=== PATIENT | female | born 1940 | race Caucasian/White ===

== ENCOUNTER 2016-06-05 08:06 | Day surgery (SDC) | payer MEDICARE, OTHER ==
[~2016-06-05 08:06] MED LIST: Lasix 20 MG/2 ML IV ONE; Sodium Chloride 0.9% 1000 ML 1,000 ML IV SCH
[2016-06-05] MEDS ORDERED: Lasix 20 MG/2 ML ONE (11:17)
[2016-06-05 15:15] VITALS: BP 118/65; PULSE 67; O2SAT 94
== END 2016-06-05 15:00 | disposition home or self-care (01) ==
LOC: SDC 08:06
PROVIDERS: ATTEND Family Medicine
DX: D64.9 Anemia, unspecified (principal)
CPT/HCPCS: 96374; 96365; 96366; 36415; 86850; 86900; 86901; 86922; P9016; 36430; J1940

== ENCOUNTER 2017-03-04 19:16 | Inpatient (IN) | payer MEDICARE, OTHER ==
[2017-03-04] MEDS ORDERED: ROCEPHIN 1 Gm-D5w 50 ml Bag** 1 G/50 ML IVPB IV STA (19:30)
[2017-03-04] MEDS ORDERED: Zithromax 500 MG/ 250 ML NaCl Premix 500 MG/250 ML IVPB IV STA (19:30)
[2017-03-04] MEDS ORDERED: Xopenex 1.25 MG/0.5 ML UD NEBULE IH ONE ×2 (19:32→20:29)
[2017-03-04] MEDS ORDERED: TORAdol 30 mg Injection IV ONE (19:33)
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
[2017-03-04] MEDS ORDERED: TORAdol 30 mg Injection ONE (19:45)
[2017-03-04] MEDS ORDERED: ROCEPHIN 1 Gm-D5w 50 ml Bag** 1 G/50 ML IVPB IV ONE (19:45)
[2017-03-04] MEDS ORDERED: Zithromax 500 MG/ 250 ML NaCl Premix 500 MG/250 ML IVPB IV ONE (19:45)
[2017-03-04] MEDS: Sodium Chloride 0.9% 1000 ML 1,000 ML IV SCH (19:46)
[2017-03-04 20:05] LABS: Granulocyte Absolute (ANC) 11.24 (1.4-6.9); Hemoglobin 13.9 gm/dl (12.0-16.0); Mean Cell Volume 98.7 fl (78-100); Mean Corpuscular Hemoglobin 31.2 pg (26-32); Mean Corpuscular Hgb Concent. 31.6 g/dl (32-36); Mean Platelet Volume 10.5 fl (6-9.5); Platelet Count 224 K/mm3 (150-450); Red Blood Count 4.46 M/mm3 (4.1-5.4); Red Cell Distribution Width 12.3 % (11.5-14.0); White Blood Count 12.9 K/mm3 (4.0-10.5)
[2017-03-04] MEDS ORDERED: Sodium Chloride 3 ML UD NEBULES IH ONE (20:29)
[2017-03-04 20:34] LABS: AMYLASE 52 U/L (25-115); LIPASE 71 U/L (73-393)
[2017-03-04 20:39] LABS: ALBUMIN 3.2 g/dL (3.4-5.0); ALKALINE PHOSPHATASE 86 U/L (46-116); ANION GAP 12.9 MEQ/L (5-15); BLOOD UREA NITROGEN 15 mg/dL (9-20); CHLORIDE 101 mEq/L (98-107); Calcium 9.6 mg/dL (8.5-10.1); Carbon Dioxide 27.1 mEq/L (21-32); Creatinine 1 0.82 mg/dl (0.55-1.30); EST GLOMERULAR FILTRATION RATE > 60 ML/MIN; Glucose 133 MG/DL (70-110); Potassium 3.9 mEq/L (3.5-5.1); SGOT/AST 19 U/L (15-37); SGPT/ALT 18 U/L (12-78); SODIUM 137 mEq/L (136-145); Total Protein 7.9 gm/dL (6.4-8.2)
[2017-03-04 21:01] LABS: ATYPICAL LYMPHS 2 %; Lymphocytes 2 % (24-44); Monocyte 9 % (0.0-12.0); Neutrophils 87 % (36.0-66.0); Total Cells Counted 100
[2017-03-04 21:02] LABS: Platelet Estimate NORMAL (NORMAL)
[2017-03-04 21:12] LABS: INFLUENZA A NEGATIVE (NEGATIVE); INFLUENZA B NEGATIVE (NEGATIVE); RESPIRATORY SYNCTIAL VIRUS NEGATIVE (Negative)
[2017-03-04] MEDS ORDERED: SUBLIMAZE 100 MCG/2 ML IV ONE (21:24)
[2017-03-04] MEDS ORDERED: Phenergan 25 MG INJ IV PRN (21:26)
[2017-03-04] MEDS ORDERED: Robitussin AC Syrup Unit Dose Cup PO PRN (21:26)
[2017-03-04] MEDS ORDERED: MORPHINE SULFATE 2 MG INJ IV PRN (21:26)
[2017-03-04] MEDS ORDERED: SUBLIMAZE 100 MCG/2 ML ONE (21:30)
[2017-03-04] MEDS: PROVENTIL 2.5 MG/3 ML NEB IH SCH (23:29)
[2017-03-04] MEDS: TYLENOL 325 MG PO PRN (23:30)
[2017-03-04] MEDS ORDERED: Catapres 0.1 MG PO ONE (23:30)
[2017-03-05] MEDS: PROVENTIL 2.5 MG/3 ML NEB IH SCH ×6 (03:35→23:06)
[2017-03-05] MEDS: Sodium Chloride 0.9% 1000 ML 1,000 ML IV SCH ×2 (04:52→14:40)
[2017-03-05 06:05] LABS: BASOPHIL % 0.1 % (0.0-0.4); Basophil (Absolute #) 0.01 (0-0.4); Eosinophil % 0.3 % (0.00-5.0); Eosinophil (Absolute #) 0.03 (0-0.5); Granulocyte Absolute (ANC) 8.84 (1.4-6.9); Granulocytes % 81.5 % (36.0-66.0); Hematocrit 41.1 % (35-47); Lymphocyte (Absolute #) 0.92 (1.0-4.6); Lymphocytes % 8.5 % (24.0-44.0); Mean Cell Volume 99.5 fl (78-100); Mean Corpuscular Hemoglobin 31.5 pg (26-32); Mean Corpuscular Hgb Concent. 31.6 g/dl (32-36); Mean Platelet Volume 10.5 fl (6-9.5); Monocyte (Absolute #) 1.04 (0.0-1.3); Monocytes % 9.6 % (0.0-12.0); Platelet Count 206 K/mm3 (150-450); Red Blood Count 4.13 M/mm3 (4.1-5.4); Red Cell Distribution Width 12.3 % (11.5-14.0); White Blood Count 10.8 K/mm3 (4.0-10.5)
[2017-03-05] MEDS ORDERED: TORAdol 30 mg Injection ONE (06:26)
[2017-03-05] MEDS: TORAdol 30 mg Injection IV PRN ×2 (06:28→14:35)
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
[2017-03-05 06:43] LABS: ALBUMIN 2.8 g/dL (3.4-5.0); ALKALINE PHOSPHATASE 83 U/L (46-116); ANION GAP 12.4 MEQ/L (5-15); BLOOD UREA NITROGEN 13 mg/dL (9-20); CHLORIDE 105 mEq/L (98-107); Calcium 9.1 mg/dL (8.5-10.1); Creatinine 1 0.88 mg/dl (0.55-1.30); EST GLOMERULAR FILTRATION RATE > 60 ML/MIN; Glucose 131 MG/DL (70-110); Potassium 3.6 mEq/L (3.5-5.1); SGOT/AST 17 U/L (15-37); SGPT/ALT 17 U/L (12-78); SODIUM 140 mEq/L (136-145); Total Protein 7.5 gm/dL (6.4-8.2)
[2017-03-05 07:46] LABS: Appearance CLEAR (CLEAR); Bilirubin NEGATIVE (NEGATIVE); Blood 50 Ery/ul (0-5); Glucose NEGATIVE (NEGATIVE); Ketones NEGATIVE (NEGATIVE); Leukocyte Esterase TRACE (NEGATIVE); Nitrite NEGATIVE (NEGATIVE); Protein,Urine Dip TRACE (Negative); Specific Gravity 1.015 (1.005-1.025); Urobilinogen NORMAL mg/dL (0-1)
[2017-03-05 07:47] LABS: Bacteria FEW /HPF (NEGATIVE); Epithelial Cells FEW /HPF (FEW); Mucus SLIGHT /HPF (NEGATIVE)
--- NOTE | 2017-03-05 08:34 | XRAY ---
Indication: Chest pain, short of breath, and cough. Comparison: June 25, 2014. AP/lateral chest less inflated today with new bibasilar infiltrates/atelectasis and tiny effusions. Heart is not enlarged for AP portable technique. Bony thorax intact again with osteopenia, degenerative changes, and mid thoracic kyphoplasty.
[2017-03-05] MEDS: Catapres 0.1 MG PO SCH ×2 (09:38→21:03)
[2017-03-05] MEDS: Zestril 20 MG PO SCH (09:38)
[2017-03-05] MEDS: NORVASC 5 MG PO SCH (09:38)
[2017-03-05] MEDS: ROCEPHIN 1 Gm-D5w 50 ml Bag** 1 G/50 ML IVPB IV SCH (21:02)
[2017-03-05] MEDS: Zithromax 500 MG/ 250 ML NaCl Premix 500 MG/250 ML IVPB IV SCH (21:02)
[2017-03-06] MEDS: Sodium Chloride 0.9% 1000 ML 1,000 ML IV SCH ×4 (02:09→23:04)
[2017-03-06] MEDS: TORAdol 30 mg Injection IV PRN (02:11)
[2017-03-06] MEDS: PROVENTIL 2.5 MG/3 ML NEB IH SCH ×6 (03:18→23:49)
[2017-03-06 06:28] LABS: BASOPHIL % 0.2 % (0.0-0.4); Basophil (Absolute #) 0.01 (0-0.4); Eosinophil (Absolute #) 0.13 (0-0.5); Granulocyte Absolute (ANC) 4.66 (1.4-6.9); Granulocytes % 71.4 % (36.0-66.0); Hematocrit 37.3 % (35-47); Hemoglobin 11.5 gm/dl (12.0-16.0); Lymphocyte (Absolute #) 0.82 (1.0-4.6); Lymphocytes % 12.6 % (24.0-44.0); Mean Cell Volume 100.8 fl (78-100); Mean Corpuscular Hgb Concent. 30.8 g/dl (32-36); Mean Platelet Volume 10.2 fl (6-9.5); Monocytes % 13.8 % (0.0-12.0); Platelet Count 185 K/mm3 (150-450); Red Cell Distribution Width 12.3 % (11.5-14.0); White Blood Count 6.5 K/mm3 (4.0-10.5)
[2017-03-06 06:32] LABS: ANION GAP 8.2 MEQ/L (5-15); BLOOD UREA NITROGEN 8 mg/dL (9-20); CHLORIDE 109 mEq/L (98-107); Calcium 8.2 mg/dL (8.5-10.1); Carbon Dioxide 27.1 mEq/L (21-32); Creatinine 1 0.62 mg/dl (0.55-1.30); EST GLOMERULAR FILTRATION RATE > 60 ML/MIN; Glucose 110 MG/DL (70-110); Potassium 3.2 mEq/L (3.5-5.1); SODIUM 141 mEq/L (136-145)
--- NOTE | 2017-03-06 09:01 | PCM.NOTE ---
Date and Time: 03/06/17858 Subjective Assessment: Pt was up walking, pain is now 3/10 in R chest. Some cough. Shine po. - Review of Systems Constitutional: No Fever Respiratory: Cough Objective Exam General Appearance: no apparent distress, alert Neurologic Exam: oriented x 3, cooperative Skin Exam: normal color, warm, dry Eye Exam: eyes nml inspection Ears, Nose, Throat Exam: moist mucous membranes Respiratory Exam: normal breath sounds, lungs clear, No crackles/rales, No rhonchi, No wheezing Cardiovascular Exam: regular rate/rhythm, normal heart sounds, No murmur Extremity Exam: No pedal edema, No swelling Back Exam: normal inspection, No rash OBJECTIVE DATA Vital Signs: Vital Signs - 24 hr Temp Pulse Resp BP Pulse Ox 03/06/17 07:43 18 03/06/17 07:11 98.3 F 88 18 154/70 97 03/06/17 06:43 86 18 95 03/06/17 04:00 99.0 F 91 H 19 143/68 93 L 03/06/17 03:00 88 18 92 L 03/06/17 00:00 98.4 F 95 H 19 136/61 92 L 03/05/17 23:00 81 22 92 L 03/05/17 20:00 98.3 F 90 18 130/60 94 L 03/05/17 19:03 87 18 94 L 03/05/17 16:00 98.7 F 93 H 18 122/58 94 L 03/05/17 14:50 86 18 93 L 03/05/17 11:17 98.2 F 86 18 123/60 94 L 03/05/17 10:42 75 20 93 L Oxygen-Last 24 hours O2 Percentage 2 Liters = 28% O2 Percentage 2 Liters = 28% O2 Percentage 2 Liters = 28% O2 Percentage 2 Liters = 28% O2 Percentage 2 Liters = 28% O2 Percentage 2 Liters = 28% Pain Assessment - Last Documented Pain Intensity 6 Pain Scale Used 0-10 Pain Scale Intake and Output: Intake & Output 03/03/17 03/04/17 03/05/17 03/06/17 11:59 11:59 11:59 11:59 Intake Total 240 4263 Output Total 400 1700 Balance -160 2563 Weight 76.204 kg Lab Results: Lab Results-Last 24 Hours 0103/05/17 03/06/17 Range/Units 20:37 23:22 02:25 WBC (4.0-10.5) K/mm3 RBC (4.1-5.4) M/mm3 Hgb (12.0-16.0) gm/dl Hct (35-47) % MCV (78-100) fl MCH (26-32) pg MCHC (32-36) g/dl RDW (11.5-14.0) % Plt Count (150-450) K/mm3 MPV (6-9.5) fl Gran % (36.0-66.0) % Lymphocytes % (24.0-44.0) % Monocytes % (0.0-12.0) % Eosinophils % (0.00-5.0) % Basophils % (0.0-0.4) % Basophils # (0-0.4) Sodium (136-145) mEq/L Potassium (3.5-5.1) mEq/L Chloride (98-107) mEq/L Carbon Dioxide (21-32) mEq/L Anion Gap (5-15) MEQ/L BUN (9-20) mg/dL Creatinine (0.55-1.30) mg/dl Estimated GFR ML/MIN Glucose (70-110) MG/DL Calcium (8.5-10.1) mg/dL Troponin I < 0.017 < 0.017 < 0.017 (0.000-0.056) ng/ml 03/06/17 03/06/17 03/06/17 Range/Units 05:00 05:00 05:00 WBC 6.5 (4.0-10.5) K/mm3 RBC 3.70 L (4.1-5.4) M/mm3 Hgb 11.5 L (12.0-16.0) gm/dl Hct 37.3 (35-47) % MCV 100.8 H (78-100) fl MCH 31.0 (26-32) pg MCHC 30.8 L (32-36) g/dl RDW 12.3 (11.5-14.0) % Plt Count 185 (150-450) K/mm3 MPV 10.2 H (6-9.5) fl Gran % 71.4 H (36.0-66.0) % Lymphocytes % 12.6 L (24.0-44.0) % Monocytes % 13.8 H (0.0-12.0) % Eosinophils % 2.0 (0.00-5.0) % Basophils % 0.2 (0.0-0.4) % Basophils # 0.01 (0-0.4) Sodium 141 (136-145) mEq/L Potassium 3.2 L (3.5-5.1) mEq/L Chloride 109 H (98-107) mEq/L Carbon Dioxide 27.1 (21-32) mEq/L Anion Gap 8.2 (5-15) MEQ/L BUN 8 L (9-20) mg/dL Creatinine 0.62 (0.55-1.30) mg/dl Estimated GFR > 60 ML/MIN Glucose 110 (70-110) MG/DL Calcium 8.2 L (8.5-10.1) mg/dL Troponin I < 0.017 (0.000-0.056) ng/ml Multi-Disciplinary Progress Notes: Multi-Disciplinary Progress Notes 03/05/17 11:44 Case Management Note by Rossi Hartley PT WAS MADE INPT . IMPORTANT MESSAGE FROM MEDICARE GIVEN TO PT SIGNED AND COPY TO CHART. Initialized on 03/05/17 11:44 - END OF NOTE 03/05/17 09:51 Case Management Note by Rossi Hartley MEDICARE GATES PAPERS GIVEN TO PT SIGNED COPY TO CHART. Initialized on 03/05/17 09:51 - END OF NOTE Assessment/Plan (1) Pneumonia Current Visit: Yes Status: Acute Assessment & Plan: Improving, still having pain, still on O2. Will need at least another day, perhaps 2, on IV antibiotics before d/c home. Code(s): J18.9 - PNEUMONIA, UNSPECIFIED ORGANISM (2) Abdominal pain Current Visit: Yes Status: Acute Qualifiers: Abdominal location: epigastric Qualified Code(s): R10.13 - Epigastric pain Assessment & Plan: the RUQ pain much better, I think due to PNA. Code(s): R10.9 - UNSPECIFIED ABDOMINAL PAIN (3) Back pain Current Visit: Yes Status: Acute Qualifiers: Back pain location: thoracic back pain Chronicity: acute Back pain laterality: right Qualified Code(s): M54.6 - Pain in thoracic spine Assessment & Plan: improved Code(s): M54.9 - DORSALGIA, UNSPECIFIED
[2017-03-06] MEDS: NORVASC 5 MG PO SCH (09:29)
[2017-03-06] MEDS: Catapres 0.1 MG PO SCH ×2 (09:29→21:17)
[2017-03-06] MEDS: Zestril 20 MG PO SCH (09:30)
[2017-03-06] MEDS: ROCEPHIN 1 Gm-D5w 50 ml Bag** 1 G/50 ML IVPB IV SCH (19:54)
[2017-03-06] MEDS: Zithromax 500 MG/ 250 ML NaCl Premix 500 MG/250 ML IVPB IV SCH (21:15)
[2017-03-06] MEDS: TYLENOL 325 MG PO PRN (21:21)
[2017-03-07] MEDS: PROVENTIL 2.5 MG/3 ML NEB IH SCH ×6 (03:02→22:50)
[2017-03-07] MEDS: Sodium Chloride 0.9% 1000 ML 1,000 ML IV SCH ×4 (07:47→16:51)
--- NOTE | 2017-03-07 08:13 | PCM.NOTE ---
Date and Time: 03/07/17 08 Subjective Assessment: She is feeling better. Pain in R lower chest is perhapes 03/12. O2 sats have been 90-92% on RA. Did not wear any O2 last night. Objective Exam General Appearance: no apparent distress, alert Neurologic Exam: oriented x 3, cooperative Skin Exam: normal color, warm, dry, No rash Respiratory Exam: normal breath sounds, crackles/rales (slight RLL), No rhonchi , No wheezing Cardiovascular Exam: regular rate/rhythm, normal heart sounds, No murmur Extremity Exam: normal inspection Back Exam: normal inspection, No rash OBJECTIVE DATA Vital Signs: Vital Signs - 24 hr Temp Pulse Resp BP Pulse Ox 03/07/17 07:34 96.1 F 80 18 149/77 94 L 03/07/17 07:10 83 16 92 L 03/07/17 04:00 98.0 F 88 18 138/80 90 L 03/07/17 03:03 81 18 91 L 03/07/17 00:00 98.0 F 91 H 19 117/61 92 L 03/06/17 23:50 84 18 91 L 03/06/17 20:42 98 H 18 93 L 03/06/17 20:00 98.9 F 105 H 18 155/74 93 L 03/06/17 15:58 97.6 F 86 18 132/60 94 L 03/06/17 15:40 18 03/06/17 14:33 82 18 95 03/06/17 11:45 18 03/06/17 11:02 97.7 F 87 18 135/62 93 L 03/06/17 10:23 83 20 98 Oxygen-Last 24 hours O2 Percentage 2 Liters = 28% Pain Assessment - Last Documented Pain Intensity 0 Pain Scale Used 0-10 Pain Scale,FLACC Intake and Output: Intake & Output 03/04/17 03/05/17 03/06/17 03/07/17 11:59 11:59 11:59 11:59 Intake Total 240 4263 3811 Output Total 400 1700 3900 Balance -160 2563 -89 Weight 76.204 kg Lab Results: Lab Results-Last 24 Hours 03/06/17 Range/Units 08:34 Troponin I < 0.017 (0.000-0.056) ng/ml Multi-Disciplinary Progress Notes: Multi-Disciplinary Progress Notes 03/06/17 12:02 Case Management Note by Rossi Hartley PT CONT TO VOICE NO NEW NEEDS AT DISCHARGE, WILL CONT TO FOLLOW ANY NEEDS. Initialized on 03/06/17 12:02 - END OF NOTE Assessment/Plan (1) Pneumonia Current Visit: Yes Status: Acute Assessment & Plan: Improved; would like to see if she oxygenates well while walking. She may benefit from another day on IV fluids and antibiotics. Code(s): J18.9 - PNEUMONIA, UNSPECIFIED ORGANISM (2) Abdominal pain Current Visit: Yes Status: Acute Qualifiers: Abdominal location: epigastric Qualified Code(s): R10.13 - Epigastric pain Assessment & Plan: Nearly resolved. Related to pneumonia. Code(s): R10.9 - UNSPECIFIED ABDOMINAL PAIN (3) Back pain Current Visit: Yes Status: Resolved Qualifiers: Back pain location: thoracic back pain Chronicity: acute Back pain laterality: right Qualified Code(s): M54.6 - Pain in thoracic spine Code(s): M54.9 - DORSALGIA, UNSPECIFIED (4) Anemia Current Visit: Yes Status: Acute Qualifiers: Anemia type: unspecified type Qualified Code(s): D64.9 - Anemia, unspecified Assessment & Plan: has hx myelodysplastic d/o, was treated by oncology. will recheck today. Code(s): D64.9 - ANEMIA, UNSPECIFIED
[2017-03-07] MEDS: NORVASC 5 MG PO SCH (10:19)
[2017-03-07] MEDS: Catapres 0.1 MG PO SCH ×2 (10:19→21:02)
[2017-03-07] MEDS: Zestril 20 MG PO SCH (10:19)
[2017-03-07 10:34] LABS: ANION GAP 13.5 MEQ/L (5-15); BLOOD UREA NITROGEN 7 mg/dL (9-20); CHLORIDE 106 mEq/L (98-107); Calcium 8.4 mg/dL (8.5-10.1); Carbon Dioxide 25.6 mEq/L (21-32); Creatinine 1 0.76 mg/dl (0.55-1.30); EST GLOMERULAR FILTRATION RATE > 60 ML/MIN; Glucose 162 MG/DL (70-110); MAGNESIUM 1.9 mg/dL (1.8-2.4); Potassium 3.2 mEq/L (3.5-5.1); SODIUM 142 mEq/L (136-145)
[2017-03-07] MEDS: ROCEPHIN 1 Gm-D5w 50 ml Bag** 1 G/50 ML IVPB IV SCH (21:01)
[2017-03-07] MEDS: Zithromax 500 MG/ 250 ML NaCl Premix 500 MG/250 ML IVPB IV SCH (21:57)
[2017-03-08] MEDS: PROVENTIL 2.5 MG/3 ML NEB IH SCH ×6 (03:22→23:09)
[2017-03-08] MEDS: Sodium Chloride 0.9% 1000 ML 1,000 ML IV SCH (05:03)
[2017-03-08] MEDS: Catapres 0.1 MG PO SCH ×2 (09:41→21:47)
[2017-03-08] MEDS: NORVASC 5 MG PO SCH (09:41)
[2017-03-08] MEDS: Zestril 20 MG PO SCH (09:41)
[2017-03-08] MEDS ORDERED: Klor Con 10 MEQ PO ONE (11:17)
--- NOTE | 2017-03-08 11:41 | PCM.NOTE ---
Date and Time: 03/08/17 1136 Subjective Assessment: Patient reports she was very short of breath and her oxygen saturation dropped when she walked yesterday. She reports they thought about sending her home this weekend but then this happened. She reports her appetite has been good. - Review of Systems Constitutional: Weakness Eyes: No Symptoms Ears, Nose, & Throat: No Symptoms Respiratory: Cough, Short Of Breath Cardiac: No Symptoms Abdominal/Gastrointestinal: No Symptoms Genitourinary Symptoms: No Symptoms Musculoskeletal: No Symptoms Skin: No Symptoms Objective Exam General Appearance: no apparent distress, alert, other (son at bedside) Neurologic Exam: alert, cooperative, normal mood/affect Skin Exam: normal color, warm, dry, No rash Respiratory Exam: other (fine crackles in right lung franco, equal breath sounds , no wheezing) Cardiovascular Exam: regular rate/rhythm, normal heart sounds, No murmur, No friction rub, No gallop Gastrointestinal/Abdomen Exam: soft, normal bowel sounds, No tenderness, No distention, No mass Extremity Exam: normal inspection, other (no c/c/e, SCD in place) OBJECTIVE DATA Vital Signs: Vital Signs - 24 hr Temp Pulse Resp BP Pulse Ox 03/08/17 07:40 98.4 F 88 20 146/76 96 03/08/17 07:00 87 18 95 03/08/17 04:11 97.8 F 84 18 164/77 96 03/08/17 03:23 84 18 96 03/07/17 23:44 98.3 F 93 H 24 152/73 94 L 03/07/17 22:50 86 18 92 L 03/07/17 20:15 98.3 F 86 20 160/74 96 03/07/17 19:41 83 16 95 03/07/17 18:00 16 03/07/17 16:00 97.9 F 92 H 18 141/67 96 03/07/17 15:44 90 20 94 L 03/07/17 14:00 20 03/07/17 11:47 97.6 F 81 18 125/60 92 L Oxygen-Last 24 hours O2 Percentage 2 Liters = 28% O2 Percentage 2 Liters = 28% O2 Percentage 2 Liters = 28% O2 Percentage 2 Liters = 28% Pain Assessment - Last Documented Pain Intensity 0 Pain Scale Used 0-10 Pain Scale Intake and Output: Intake & Output 0103/07/17 03/08/17 03/09/17 06:59 06:59 06:59 06:59 Intake Total 4383 3931 4443 380 Output Total 1400 3500 4000 1700 Balance 2983 431 443 -1320 Weight 76.204 kg 72.938 kg Multi-Disciplinary Progress Notes: Multi-Disciplinary Progress Notes 03/07/17 12:49 Respiratory Note by Majo Kendall PT WALKED DOWN THE LAMAR WHILE ON ROOM AIR. O2 SAT DROPPED DOWN TO 87%. PT WAS THEN PLACED ON 2LPM NASAL CANNULA. O2 SAT INCREASED TO 97%. NURSE AWARE. Initialized on 03/07/17 12:49 - END OF NOTE Assessment/Plan (1) Pneumonia Current Visit: Yes Status: Acute Assessment & Plan: Continue antibiotics. Try to wean off oxygen. Consider home oxygen evaluation tomorrow before possible discharge. Decrease IV fluids as she is taking fluids by mouth well. Code(s): J18.9 - PNEUMONIA, UNSPECIFIED ORGANISM (2) Hypokalemia Current Visit: Yes Status: Acute Assessment & Plan: Her potassium was 3.2 yesterday. I called the pharmacist and he stated he did not see where she received any potassium yesterday. I will give her KCl 40 MEq po once. Code(s): E87.6 - HYPOKALEMIA (3) Myelodysplastic syndrome Current Visit: Yes Status: Acute Assessment & Plan: stable. Recheck CBC in AM. Code(s): D46.9 - MYELODYSPLASTIC SYNDROME, UNSPECIFIED
[2017-03-08] MEDS: ROCEPHIN 1 Gm-D5w 50 ml Bag** 1 G/50 ML IVPB IV SCH (21:47)
[2017-03-08] MEDS: Zithromax 500 MG/ 250 ML NaCl Premix 500 MG/250 ML IVPB IV SCH (22:39)
[2017-03-09] MEDS: PROVENTIL 2.5 MG/3 ML NEB IH SCH ×3 (03:34→13:06)
[2017-03-09 05:58] LABS: Granulocyte Absolute (ANC) 3.47 (1.4-6.9); Hematocrit 38.7 % (35-47); Hemoglobin 12.3 gm/dl (12.0-16.0); Mean Cell Volume 98.2 fl (78-100); Mean Corpuscular Hemoglobin 31.2 pg (26-32); Mean Corpuscular Hgb Concent. 31.8 g/dl (32-36); Mean Platelet Volume 11.4 fl (6-9.5); Platelet Count 198 K/mm3 (150-450); Red Blood Count 3.94 M/mm3 (4.1-5.4); Red Cell Distribution Width 12.4 % (11.5-14.0); White Blood Count 5.6 K/mm3 (4.0-10.5)
[2017-03-09 06:12] LABS: BLOOD UREA NITROGEN 6 mg/dL (9-20); CHLORIDE 107 mEq/L (98-107); Carbon Dioxide 27.2 mEq/L (21-32); EST GLOMERULAR FILTRATION RATE > 60 ML/MIN; Glucose 103 MG/DL (70-110); Potassium 3.6 mEq/L (3.5-5.1); SODIUM 142 mEq/L (136-145)
[2017-03-09 07:28] LABS: Eosinophil 2 % (0.00-3.0); Lymphocytes 17 % (24-44); Monocyte 5 % (0.0-12.0); Neutrophils 76 % (36.0-66.0); Total Cells Counted 100
[2017-03-09 07:29] LABS: Platelet Estimate NORMAL (NORMAL)
[2017-03-09] MEDS: NORVASC 5 MG PO SCH (09:47)
[2017-03-09] MEDS: Catapres 0.1 MG PO SCH (09:47)
[2017-03-09] MEDS: Zestril 20 MG PO SCH (09:47)
[2017-03-09 11:19] VITALS: BP 129/75; PULSE 78; O2SAT 95
--- NOTE | 2017-03-09 12:11 | PCM.DCORD ---
- Discharge Discharge Date: 03/09/17 Disposition: Home, Self-Care Condition: Good Prescriptions: New Albuterol Sulfate [Albuterol Sulfate Hfa] 2 puffs IH Q4HPRN PRN #1 [id number] PRN Reason: Shortness Of Breath/Wheezing Cefdinir 300 mg [Omnicef 300 mg] 300 mg PO BID #12 capsule Azithromycin 250 mg [Zithromax 250 MG TABLET] 250 mg PO DAILY #1 tablet Continue Clonidine HCl 0.1 mg [Catapres 0.1 MG] 0.1 mg PO BID Lisinopril 20 mg [Zestril 20 MG] 20 mg PO DAILY #30 tablet Amlodipine Besylate 5 mg [Norvasc 5 mg] 5 mg PO DAILY Follow up with: DANITZA PLUMMER [Primary Care Provider] - 03/14/17 9:00 am
--- NOTE | 2017-03-12 10:15 | DS ---
DISCHARGE DIAGNOSES: 1) PNEUMONIA, BILATERAL LOWER LOBES. 2) HYPOKALEMIA. 3) MYELODYSPLASTIC SYNDROME. DISCHARGE PHYSICAL EXAMINATION: VITALS: Temperature current 97.8F, temperature max 98.6F, heart rate 72 to 89, respiratory rate 18 to 20, blood pressure 129 to 190 over 75 to 95 currently 129/75. Oxygen saturation 92 to 95% on room air. GENERAL: The patient was ambulating in her room and in no acute distress. CVS: She has a regular rate and rhythm. No murmurs, gallops or rubs are appreciated. CHEST: Clear to auscultation bilaterally. No crackles or wheezes. ABDOMEN: Soft, nontender, nondistended with normal bowel sounds. EXTREMITIES: No clubbing, cyanosis or edema. On her fingers she does have cyanosis due to Raynaud's phenomenon. SKIN: Warm, dry and intact. HOSPITAL COURSE: 1) PNEUMONIA BILATERAL LOWER LOBE: She was given azithromycin four doses here in the hospital and will give her one more dose of azithromycin 250 mg p.o. to take at home. She was on ceftriaxone 1 gm IV daily x4 days here in the hospital. I plan to complete a ten day course with Cefdinir 300 mg p.o. b.i.d. We tried to qualify the patient for home oxygen yesterday before discharge but she did not qualify. She will be sent home with an Albuterol inhaler 2 puffs every four hours as needed and she will closely follow up with her primary care physician, Dr. Hurt. 2) HYPOKALEMIA: She was given 40 mEq of potassium chloride on 03/08/2017 for potassium of 3.2. Her potassium was normal today at 2.6. 3) HISTORY OF MYELODYSPLASTIC SYNDROME: Her white blood cell count was normal at 5.6, hemoglobin 12.3, PLT count 198,000. DISCHARGE MEDICATIONS: She is resuming all of her home medications with the addition of azithromycin, Cefdinir and Albuterol inhaler. FOLLOW UP: Follow up with Dr. Hurt. DISPOSITION: The patient was discharged to home in good condition.
== END 2017-03-09 14:25 | disposition home or self-care (01) | DRG 195 ==
LOC: ED 19:16 → MED SURG 22:14 → OBSVTOIN 03-05 06:36
PROVIDERS: ADMIT Family Medicine; ATTEND Family Medicine
DX: J18.9 Pneumonia, unspecified organism (principal); J02.9 Acute pharyngitis, unspecified; J18.1 Lobar pneumonia, unspecified organism; E87.6 Hypokalemia; D46.9 Myelodysplastic syndrome, unspecified; I10 Essential (primary) hypertension; R10.13 Epigastric pain; M54.6 Pain in thoracic spine; D64.9 Anemia, unspecified; Z79.899 Other long term (current) drug therapy
CPT/HCPCS: 36000; 36415; 71046; 80048; 80053; 81000; 82150; 83036; 83690; 83735; 84484; 85025; 87040; 87070; 87086; 87430; 87631; 93005; 94640; 94760; 96360; 96361; 96365; 96367; 96375; 99285; G0378; J0456; J0696; J1885; J3010; A9270-GY

== ENCOUNTER 2018-02-20 10:18 | Inpatient (IN) | payer MEDICARE, OTHER ==
[2018-02-20] MEDS ORDERED: Sodium Chloride 0.9% 500 ML 500 ML IV SCH (11:30)
[2018-02-20] MEDS ORDERED: PROVENTIL 2.5 MG/3 ML NEB IH PRN (11:30)
[2018-02-20 11:48] LABS: BASOPHIL % 0.3 % (0.0-0.4); Basophil (Absolute #) 0.02 (0-0.4); Eosinophil % 2.5 % (0.00-5.0); Eosinophil (Absolute #) 0.15 (0-0.5); Granulocyte Absolute (ANC) 4.27 (1.4-6.9); Granulocytes % 70.5 % (36.0-66.0); Hematocrit 47.4 % (35-47); Hemoglobin 15.1 gm/dl (12.0-16.0); Lymphocyte (Absolute #) 0.85 (1.0-4.6); Mean Cell Volume 98.5 fl (78-100); Mean Corpuscular Hemoglobin 31.4 pg (26-32); Mean Corpuscular Hgb Concent. 31.9 g/dl (32-36); Mean Platelet Volume 9.8 fl (6-9.5); Monocyte (Absolute #) 0.77 (0.0-1.3); Monocytes % 12.7 % (0.0-12.0); Platelet Count 228 K/mm3 (150-450); Red Blood Count 4.81 M/mm3 (4.1-5.4); Red Cell Distribution Width 12.3 % (11.5-14.0); White Blood Count 6.1 K/mm3 (4.0-10.5)
[2018-02-20 12:12] LABS: ALBUMIN 3.9 g/dL (3.5-5.0); ALKALINE PHOSPHATASE 94 U/L (38-126); AMYLASE 76 U/L (30-110); ANION GAP 11.5 MEQ/L (5-15); BLOOD UREA NITROGEN 15 mg/dL (7-17); CHLORIDE 105 mmol/L (98-107); Calcium 9.6 mg/dL (8.4-10.2); Carbon Dioxide 27 mmol/L (22-30); Creatinine 1 0.84 mg/dL (0.52-1.04); Glucose 121 mg/dL (74-106); LIPASE 70 U/L (23-300); Potassium 3.9 mmol/L (3.5-5.1); SGOT/AST 26 U/L (14-36); SGPT/ALT 17 U/L (0-35); SODIUM 140 mmol/L (137-145); Total Protein 7.6 g/dL (6.3-8.2)
[2018-02-20] MEDS: ROCEPHIN 1 Gm-D5w 50 ml Bag** 1 G/50 ML IVPB IV SCH (12:30)
[2018-02-20] MEDS: Sodium Chloride 0.9% 1000 ML 1,000 ML IV SCH (12:30)
--- NOTE | 2018-02-20 12:41 | XRAY ---
Indication: Short of breath, cough, and congestion 1 week. Comparison: February 18, 2018. PA/lateral chest unchanged again demonstrating mild bibasilar infiltrates versus atelectasis and fluid distended hiatal hernia. Heart and mediastinal structures within normal limits. No new cardiopulmonary abnormalities.
[2018-02-20] MEDS: Zithromax 500 MG/ 250 ML NaCl Premix 500 MG/250 ML IVPB IV SCH (13:30)
[2018-02-20 15:23] LABS: Appearance CLEAR (CLEAR); Bilirubin NEGATIVE (NEGATIVE); Blood SMALL Ery/ul (0-5); Glucose NEGATIVE (NEGATIVE); Ketones NEGATIVE (NEGATIVE); Leukocyte Esterase NEGATIVE (NEGATIVE); Nitrite NEGATIVE (NEGATIVE); Protein,Urine Dip NEGATIVE (Negative); Specific Gravity 1.005 (1.005-1.025); Urobilinogen NEGATIVE mg/dL (0-1)
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
[2018-02-20] MEDS: Catapres 0.1 MG PO SCH (21:47)
[2018-02-20] MEDS: Mucinex 600MG ER Tabs PO SCH (21:47)
[2018-02-21] MEDS: Sodium Chloride 0.9% 1000 ML 1,000 ML IV SCH ×2 (00:04→10:54)
[2018-02-21] MEDS ORDERED: Zestril 20 MG PO SCH (10:00)
--- NOTE | 2018-02-21 10:42 | PCM.NOTE ---
Date and Time: 02/21/18 1040 Subjective Assessment: Pt is feeling better. Cough is decreased. BP elevated during this stay; when she has seen her specialists or been in my office it has been controlled, per pt. - Review of Systems Constitutional: No Fever Respiratory: Cough Objective Exam General Appearance: no apparent distress, alert Neurologic Exam: oriented x 3, cooperative Skin Exam: normal color, warm, dry, No rash Respiratory Exam: normal breath sounds, lungs clear, No crackles/rales, No rhonchi, No wheezing Cardiovascular Exam: regular rate/rhythm, normal heart sounds, No murmur Gastrointestinal/Abdomen Exam: normal bowel sounds, No distention OBJECTIVE DATA Vital Signs: Vital Signs - 24 hr Temp Pulse Resp BP Pulse Ox 02/21/18 08:00 18 02/21/18 07:44 98.7 F 63 18 168/79 97 02/21/18 07:25 64 18 94 L 02/21/18 04:07 98.2 F 66 18 134/76 96 02/21/18 00:23 98.5 F 71 16 152/63 97 02/21/18 00:00 16 02/20/18 20:00 18 02/20/18 19:49 98.2 F 73 18 177/80 97 02/20/18 19:20 68 16 97 02/20/18 16:52 98 F 67 20 131/83 95 02/20/18 16:00 98 F 83 22 150/96 97 02/20/18 14:00 99 Pain Assessment - Last Documented Pain Intensity 0 Pain Scale Used 0-10 Pain Scale Intake and Output: Intake & Output 02/18/18 02/19/18 02/20/18 02/21/18 11:59 11:59 11:59 11:59 Intake Total 4086 Output Total 4450 Balance -364 Weight 71 kg Lab Results: Lab Results-Last 24 Hours 02/20/18 02/20/18 02/20/18 Range/Units 11:45 11:45 15:21 WBC 6.1 (4.0-10.5) K/mm3 RBC 4.81 (4.1-5.4) M/mm3 Hgb 15.1 (12.0-16.0) gm/dl Hct 47.4 H (35-47) % MCV 98.5 (78-100) fl MCH 31.4 (26-32) pg MCHC 31.9 L (32-36) g/dl RDW 12.3 (11.5-14.0) % Plt Count 228 (150-450) K/mm3 MPV 9.8 H (6-9.5) fl Gran % 70.5 H (36.0-66.0) % Eos # (Auto) 0.15 (0-0.5) Absolute Lymphs (auto) 0.85 L (1.0-4.6) Absolute Monos (auto) 0.77 (0.0-1.3) Lymphocytes % 14.0 L (24.0-44.0) % Monocytes % 12.7 H (0.0-12.0) % Eosinophils % 2.5 (0.00-5.0) % Basophils % 0.3 (0.0-0.4) % Absolute Granulocytes 4.27 (1.4-6.9) Basophils # 0.02 (0-0.4) Sodium 140 (137-145) mmol/L Potassium 3.9 (3.5-5.1) mmol/L Chloride 105 (98-107) mmol/L Carbon Dioxide 27 (22-30) mmol/L Anion Gap 11.5 (5-15) MEQ/L BUN 15 (7-17) mg/dL Creatinine 0.84 (0.52-1.04) mg/dL Estimated GFR > 60.0 ML/MIN Glucose 121 H (74-106) mg/dL Calcium 9.6 (8.4-10.2) mg/dL Total Bilirubin 0.50 (0.2-1.3) mg/dL AST 26 (14-36) U/L ALT 17 (0-35) U/L Alkaline Phosphatase 94 (38-126) U/L Serum Total Protein 7.6 (6.3-8.2) g/dL Albumin 3.9 (3.5-5.0) g/dL Amylase 76 (30-110) U/L Lipase 70 (23-300) U/L Urine Color STRAW (YELLOW) Urine Appearance CLEAR (CLEAR) Urine pH 7.0 (5-6) Ur Specific [place] 1.005 (1.005-1.025) Urine Protein NEGATIVE (Negative) Urine Ketones NEGATIVE (NEGATIVE) Urine Blood SMALL (0-5) George/ul Urine Nitrite NEGATIVE (NEGATIVE) Urine Bilirubin NEGATIVE (NEGATIVE) Urine Urobilinogen NEGATIVE (0-1) mg/dL Ur Leukocyte Esterase NEGATIVE (NEGATIVE) Urine WBC (Auto) NONE (0-5) /HPF Urine RBC (Auto) NONE (0-2) /HPF U Epithel Cells (Auto) NONE (FEW) /HPF Urine Bacteria (Auto) NONE SEEN (NEGATIVE) /HPF Urine Mucus (Auto) SLIGHT (NEGATIVE) /HPF Urine Culture Reflexed NO (NO) Urine Glucose NEGATIVE (NEGATIVE) mg/dL Radiology Exams: Radiology Procedures Category Date Time Status CHEST 2 VIEWS (PA AND LAT) Routine Exams 02/20/18 11:35 Completed Assessment/Plan (1) Pneumonia Current Visit: No Status: Acute Onset Date: ~02/20/18 Assessment & Plan: Doing much better. Plan to d/c home tomorrow. Code(s): J18.9 - PNEUMONIA, UNSPECIFIED ORGANISM (2) Abdominal pain Current Visit: No Status: Resolved Qualifiers: Abdominal location: right lower quadrant Qualified Code(s): R10.31 - Right lower quadrant pain Code(s): R10.9 - UNSPECIFIED ABDOMINAL PAIN (3) Myelodysplastic syndrome Current Visit: No Status: Chronic Code(s): D46.9 - MYELODYSPLASTIC SYNDROME , UNSPECIFIED
[2018-02-21] MEDS: Zestril 20 MG*** 20 MG, hydroDIURIL 25 MG*** 12.5 MG PO SCH ×2 (10:55)
[2018-02-21] MEDS: ROCEPHIN 1 Gm-D5w 50 ml Bag** 1 G/50 ML IVPB IV SCH (10:56)
[2018-02-21] MEDS: NORVASC 5 MG PO SCH (10:56)
[2018-02-21] MEDS: Mucinex 600MG ER Tabs PO SCH ×2 (10:56→21:22)
[2018-02-21] MEDS: Tussionex Pennkinetic Susp PO PRN (10:57)
[2018-02-21] MEDS: Catapres 0.1 MG PO SCH ×2 (10:57→21:22)
[2018-02-21] MEDS: Zithromax 500 MG/ 250 ML NaCl Premix 500 MG/250 ML IVPB IV SCH (12:05)
[2018-02-22] MEDS: Tussionex Pennkinetic Susp PO PRN (09:39)
[2018-02-22] MEDS: NORVASC 5 MG PO SCH ×2 (09:40→09:41)
[2018-02-22] MEDS: ROCEPHIN 1 Gm-D5w 50 ml Bag** 1 G/50 ML IVPB IV SCH (09:40)
[2018-02-22] MEDS: Mucinex 600MG ER Tabs PO SCH (09:40)
[2018-02-22] MEDS: Zestril 20 MG*** 20 MG, hydroDIURIL 25 MG*** 12.5 MG PO SCH ×2 (09:40)
[2018-02-22] MEDS: Catapres 0.1 MG PO SCH (09:41)
--- NOTE | 2018-02-22 10:24 | PCM.DS ---
Discharge Summary Date of Admission: 02/20/18 11:10 Admitting Physician: DANITZA PLUMMER Primary Care Provider: DANITZA PLUMMER Allergies Allergies No Known Drug Allergies Allergy (Verified 03/04/17 19:36) Hospital Summary - Hospital Course Hospital Course: Pt is 77 yo female pt of mine with myelodysplastic syndrome from [facility] who was being treated outpatient for pneumonia but continued to feel worse and had some abd pain due to coughing. She was admitted to [facility] for IV rocephin and zithromax. She has been feeling better every day and is feeling pretty good today. She was started on lisinopril/HCTZ instead of lisinopril due to some elevated blood pressures. Home on po augmentin. - Vitals & Intake/Output Vital Signs: Vital Signs Temperature 97.5 F 02/22/18 08:00 Pulse Rate 68 02/22/18 08:00 Respiratory Rate 16 02/22/18 08:00 Blood Pressure 146/78 02/22/18 08:00 O2 Sat by Pulse Oximetry 97 02/22/18 08:00 Intake & Output: Intake & Output 02/19/18 02/20/18 02/21/18 02/22/18 11:59 11:59 11:59 11:59 Intake Total 4086 3277 Output Total 4450 1950 Balance -364 1327 Weight 71 kg - Lab Result Diagrams: 02/20/18 11:45 02/20/18 11:45 - Radiology Exams Ordered Rad Exams-Entire Visit: Radiology Procedures Category Date Time Status CHEST 2 VIEWS (PA AND LAT) Routine Exams 02/20/18 11:35 Completed - Procedures and Test Procedures and Tests throughout Hospitalization: Therapy Orders & Screens 02/20/18 11:30 Respiratory Nebulizer Q4H Comment: alb every 4 hours prn Diagnosis: PNE 02/20/18 14:00 Respiratory Therapy Assessment DAILY Comment: Diagnosis: failed outpatient pneumonia Discharge Exam General Appearance: no apparent distress, alert Neurologic Exam: oriented x 3, cooperative Skin Exam: normal color, warm, dry, No rash Ears, Nose, Throat Exam: moist mucous membranes Neck Exam: normal inspection, non-tender, No lymphadenopathy Respiratory Exam: normal breath sounds, lungs clear, No crackles/rales, No rhonchi, No wheezing Cardiovascular Exam: regular rate/rhythm, normal heart sounds, No murmur Extremity Exam: normal inspection, No pedal edema, No swelling Back Exam: normal inspection, No rash Final Diagnosis/Problem List - Final Discharge Diagnosis/Problem (1) Pneumonia Current Visit: No Status: Acute Onset Date: ~02/20/18 Assessment & Plan: Doing great. Home on po augmentin x 7d. (2) Abdominal pain Current Visit: No Status: Resolved (3) Myelodysplastic syndrome Current Visit: No Status: Chronic - Discharge Disposition: Home, Self-Care Condition: Good Prescriptions: New Lisinopril/Hydrochlorothiazide [Lisinopril-Hctz 20-12.5 mg Tab] 1 each PO DAILY #30 tablet Guaifenesin 600 mg ER [Mucinex 600MG ER Tabs] 600 mg PO BID #30 tablet Amoxicillin/Potassium Clav [Augmentin 875-125 Tablet] 875 mg PO BID #14 tablet Continue Clonidine HCl 0.1 mg [Catapres 0.1 MG] 0.1 mg PO BID Amlodipine Besylate 5 mg [Norvasc 5 mg] 5 mg PO DAILY Discontinued Lisinopril 20 mg [Zestril 20 MG] 20 mg PO DAILY #30 tablet Follow up with: DANITZA PLUMMER [Primary Care Provider] - 1 Week
[2018-02-22] MEDS: Zithromax 500 MG/ 250 ML NaCl Premix 500 MG/250 ML IVPB IV SCH ×2 (11:16→12:14)
[2018-02-22 12:28] VITALS: BP 104/57; PULSE 70; O2SAT 95
== END 2018-02-22 12:25 | disposition home or self-care (01) | DRG 195 ==
LOC: MED SURG 11:10
PROVIDERS: ADMIT Family Medicine; ATTEND Family Medicine
DX: J18.9 Pneumonia, unspecified organism (principal); R10.9 Unspecified abdominal pain; D46.9 Myelodysplastic syndrome, unspecified; Z79.899 Other long term (current) drug therapy; I65.8 Occlusion and stenosis of other precerebral arteries; I10 Essential (primary) hypertension
CPT/HCPCS: 36415; 71046; 80053; 81001; 82150; 83690; 85025; 94760; J0456; J0696; A9270-GY

== ENCOUNTER 2020-04-13 20:03 | Observation (INO) | payer MEDICARE, OTHER ==
[2020-04-13 21:01] LABS: Absolute Neutrophil Ct (ANC) 4.59 (1.4-6.9); BASOPHIL % 0.3 % (0.0-0.4); Basophil (Absolute #) 0.02 (0-0.4); Eosinophil % 2.3 % (0.00-5.0); Eosinophil (Absolute #) 0.16 (0-0.5); Hematocrit 41.2 % (35-47); Hemoglobin 12.6 gm/dl (12.0-16.0); Lymphocyte (Absolute #) 1.42 (1.0-4.6); Lymphocytes % 20.1 % (24.0-44.0); Mean Cell Volume 93.4 fl (78-100); Mean Corpuscular Hemoglobin 28.6 pg (26-32); Mean Corpuscular Hgb Concent. 30.6 g/dl (32-36); Mean Platelet Volume 10.1 fl (7.5-11.0); Monocyte (Absolute #) 0.88 (0.0-1.3); Monocytes % 12.4 % (0.0-12.0); Neutrophil % 64.9 % (36.0-66.0); Platelet Count 287 K/mm3 (150-450); Red Blood Count 4.41 M/mm3 (4.1-5.4); Red Cell Distribution Width 13.5 % (11.5-14.0); White Blood Count 7.1 K/mm3 (4.0-10.5)
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
[2020-04-13 21:20] LABS: ALBUMIN 4.1 g/dL (3.5-5.0); ANION GAP 10.2 MEQ/L (5-15); BILIRUBIN,TOTAL 0.3 mg/dL (0.2-1.3); Calcium 10.1 mg/dL (8.4-10.2); Creatinine 1 1.13 mg/dL (0.52-1.04); EST GLOMERULAR FILTRATION RATE 49.4 ML/MIN; Potassium 3.9 mmol/L (3.5-5.1); Total Protein 7.8 g/dL (6.3-8.2)
[2020-04-13 22:13] LABS: Appearance CLEAR (CLEAR); Bilirubin NEGATIVE (NEGATIVE); Blood NEGATIVE Ery/ul (0-5); Glucose NEGATIVE (NEGATIVE); Ketones NEGATIVE (NEGATIVE); Leukocyte Esterase NEGATIVE (NEGATIVE); Mucus SLIGHT /HPF (NEGATIVE); Nitrite NEGATIVE (NEGATIVE); Protein,Urine Dip NEGATIVE (Negative); Specific Gravity 1.006 (1.005-1.025); Urobilinogen NEGATIVE mg/dL (0-1); WBC 0-2 /HPF (0-5)
[2020-04-13] MEDS ORDERED: ENOXAPARIN SODIUM SQ ONE ×2 (22:50→22:59)
[2020-04-14] MEDS: Catapres 0.1 MG PO SCH ×2 (01:15→09:10)
[2020-04-14 05:19] LABS: Absolute Neutrophil Ct (ANC) 3.04 (1.4-6.9); BASOPHIL % 0.2 % (0.0-0.4); Basophil (Absolute #) 0.01 (0-0.4); Eosinophil % 2.4 % (0.00-5.0); Eosinophil (Absolute #) 0.12 (0-0.5); Hematocrit 39.4 % (35-47); Hemoglobin 12.1 gm/dl (12.0-16.0); Lymphocyte (Absolute #) 1.24 (1.0-4.6); Lymphocytes % 24.4 % (24.0-44.0); Mean Cell Volume 93.4 fl (78-100); Mean Corpuscular Hemoglobin 28.7 pg (26-32); Mean Corpuscular Hgb Concent. 30.7 g/dl (32-36); Mean Platelet Volume 10.2 fl (7.5-11.0); Monocyte (Absolute #) 0.67 (0.0-1.3); Monocytes % 13.2 % (0.0-12.0); Neutrophil % 59.8 % (36.0-66.0); Platelet Count 241 K/mm3 (150-450); Red Blood Count 4.22 M/mm3 (4.1-5.4); Red Cell Distribution Width 13.3 % (11.5-14.0); White Blood Count 5.1 K/mm3 (4.0-10.5)
[2020-04-14 05:38] LABS: ALBUMIN 3.6 g/dL (3.5-5.0); ALKALINE PHOSPHATASE 70 U/L (38-126); ANION GAP 9.7 MEQ/L (5-15); BLOOD UREA NITROGEN 19 mg/dL (7-17); CHLORIDE 101 mmol/L (98-107); Calcium 9.6 mg/dL (8.4-10.2); Carbon Dioxide 28 mmol/L (22-30); Creatinine 1 0.91 mg/dL (0.52-1.04); EST GLOMERULAR FILTRATION RATE > 60.0 ML/MIN; Glucose 99 mg/dL (74-106); Potassium 3.9 mmol/L (3.5-5.1); SGOT/AST 24 U/L (14-36); SGPT/ALT 10 U/L (0-35); SODIUM 136 mmol/L (137-145); Total Protein 6.8 g/dL (6.3-8.2)
--- NOTE | 2020-04-14 08:56 | XRAY ---
Indication: Lower leg swelling. Comparison: April 22, 2018. 2 view left lower leg demonstrate stable mild knee degenerative changes and minimal vascular calcifications. No new/acute bony, articular, or soft tissue abnormalities.
--- NOTE | 2020-04-14 08:58 | XRAY ---
Indication: Pain and swelling. Two-dimensional sonogram and color Doppler imaging of the major venous vessels of the left leg was performed. Comparison: None There are nonoccluding thrombi in the popliteal and posterior tibial. Additional occluding thrombus seen in the greater saphenous vein at the level of the calf. No thrombus in the remaining visualized common femoral, deep femoral, and femoral veins. These patent veins demonstrate normal compressibility and normal venous waveforms. Impression: Occluding and nonoccluding DVTs as detailed. Comment: Preliminary report was given.
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
[2020-04-14] MEDS ORDERED: NON-FORMULARY ITEM (Lisinopril/Hydrochlorothiazide [Lisinopril-Hctz 20-12.5 Mg Tab] 1 EACH PO SCH (10:00)
[2020-04-14] MEDS ORDERED: hydroDIURIL 25 MG PO SCH (10:00)
[2020-04-14] MEDS ORDERED: Zestril 20 MG PO SCH (10:00)
[2020-04-14] MEDS ORDERED: NORVASC 5 MG PO SCH (10:00)
--- NOTE | 2020-04-14 12:25 | XRAY ---
Indication: Decreased pulse in lower leg. Left leg DVT. Conventional contrast enhanced CTA abdominal aorta with bilateral runoff performed using 125 cc Isovue 370 contrast. Two-dimensional sagittal and coronal reformatted images obtained. Additional 3-dimensional reformatted images obtained using a separate workstation. Comparison: None Abdominal aorta demonstrates mild/moderate scattered arteriosclerotic disease without aneurysm/dissection. Celiac and superior mesenteric arteries demonstrates arteriosclerotic calcifications at both origins without critical stenosis, obstruction, or poststenotic dilatation. Inferior mesenteric artery normal in CTA appearance. A single widely patent renal artery supplies each kidney. Right leg runoff demonstrates very minimal scattered calcifications in the common iliac artery. External iliac artery widely patent. Minimal eccentric calcifications in the distal common femoral artery without critical stenosis/obstruction.. Deep femoral, superficial femoral, and popliteal arteries are normal in CTA appearance. Trifurcation arteries are also patent with two-vessel runoff into the right foot. Left leg runoff also demonstrates very minimal calcifications in the common iliac and distal common femoral arteries. External iliac artery, deep femoral, and superficial femoral arteries are widely patent. Popliteal artery demonstrates very minimal calcifications without critical stenosis/obstruction. Trifurcation arteries are widely patent with three-vessel runoff into the left foot. Incidental CT findings include cardiomegaly, bibasilar pulmonary atelectasis/scarring, large hiatal hernia with partial intrathoracic stomach, 2.5 cm gallstone with mild gallbladder wall thickening, bilateral peripelvic renal cysts, and splenic calcified granulomas. Noncontrasted stomach and bowel loops appear nonobstructed with mild diffuse scattered colonic fecal debris and sigmoid diverticulosis. There has been hysterectomy. No free fluid/air. Remaining liver, pancreas, adrenal glands, ureters, and bladder are unremarkable. No pathologic retroperitoneal lymphadenopathy. Distal rectus femoris muscle demonstrates small intramuscular lipomas, left greater than right. Osseous structures demonstrates osteopenia, mild/moderate multilevel thoracolumbar degenerative spondylosis greatest at L5-S1, and T11/T12 Schmorl nodes. Impression: 1. 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 Negative AAA or critical stenosis/obstruction. 2. Left and right leg runoff demonstrates very minimal scattered arteriosclerotic disease with two-vessel runoff right foot and three-vessel runoff left foot. 3. Large gallstone with gallbladder wall thickening. Rule out cholecystitis. 4. Incidental cardiomegaly, large hiatal hernia with partial intrathoracic stomach, diffuse fecal stasis, colonic diverticulosis, bilateral renal cysts, bilateral rectus femoris intramuscular lipomas, and chronic bony findings.
[2020-04-14 16:29] VITALS: BP 120/66; PULSE 78; O2SAT 99
== END 2020-04-14 17:00 | disposition home or self-care (01) ==
LOC: ED 20:03 → MED SURG 23:54
PROVIDERS: ADMIT Family Medicine; ATTEND Family Medicine
DX: I82.432 Acute embolism and thrombosis of left popliteal vein (principal); I82.442 Acute embolism and thrombosis of left tibial vein; M79.89 Other specified soft tissue disorders; I10 Essential (primary) hypertension; Z79.899 Other long term (current) drug therapy
CPT/HCPCS: 36000; 36415; 73590; 75635; 80053; 81001; 82550; 83735; 83880; 84484; 85025; 93041; 93268; 93971; 94760; 96372; 99284; G0378; J1650; A9270-GY

== ENCOUNTER 2020-08-02 05:44 | Day surgery (SDC) | payer MEDICARE, OTHER ==
[2020-08-02 06:25] VITALS: O2SAT 99
[2020-08-02] MEDS ORDERED: Lactated Ringers 1,000 ML IV SCH (06:30)
[2020-08-02] MEDS ORDERED: DIPRIVAN 200 MG/20 ML IV ONE ×2 (07:38→07:59)
--- NOTE | 2020-08-02 09:22 | OP ---
SURGERY DATE/TIME: 08/02/2020 0741 PREOPERATIVE DIAGNOSIS: Iron deficiency anemia. POSTOPERATIVE DIAGNOSES: 1) Mild gastritis. 2) Broad based cecal polyp unable to completely remove. PROCEDURES: 1) EGD. 2) Colonoscopy. SURGEON: Adam De La Torre M.D. ANESTHESIA: MAC by Chad Robles CRNA. ESTIMATED BLOOD LOSS: Minimal. SPECIMENS: 1) Two cold forceps biopsies from the gastric antrum. 2) Biopsy of cecal polyp. DESCRIPTION OF PROCEDURE: After informed written consent was obtained, the patient was taken to the endoscopy suite. She was placed in left lateral decubitus position and a bite block inserted. Anesthesia was titrated to desired level of consciousness and the endoscope inserted in the posterior oropharynx. Under direct visualization the esophagus was traversed. There was some mild narrowing at the gastroesophageal junction. No obvious lesions or mass is present. Upon entering the stomach there was normal rugated gastric mucosa. There were some mild gastritis-type changes in the gastric antrum. First and second portions of the duodenum were within normal limits upon traversing the pylorus. Two cold forceps biopsies were taken from the gastric antrum and sent for Helicobacter pylori testing. Upon withdrawal no other obvious lesions were encountered. The scope was removed and the scopes were switched. Digital rectal exam showed normal sphincter tone and no internal lesions. The scope was inserted in the rectum and sequentially the entire colonic mucosa was traversed. The level of the cecum was reached and verified with direct visualization of the ileocecal valve. There was a large broad based polypoid mass-like lesion in the cecum. It was associated with the colon wall circumferentially. Attempted to snare the lesion but unable to get a snare around it. The lesion was very friable and some mild bleeding present upon encountering it. Forceps biopsy was then used and it was biopsied in several places but again it was so friable I was unable to get a meaningful manipulation of the lesion to be able to remove it in its entirety. Traffic Counter biopsy samples were taken and multiple pictures were taken. It was certainly in the cecum. Upon withdrawal there were scattered diverticula in the sigmoid colon. No other lesions were encountered. Prior to withdrawal retroflexion showed no internal lesions. The scope was then removed and the patient was transferred to the recovery room. I have discussed the inability to remove this lesion with the patient's son, reviewed pictures. I will refer her to general surgery with biopsies pending at this time. I have advised that she hold her Eliquis for the next week to allow healing of the biopsy sites until further surgical plan is considered.
[2020-08-02 09:41] VITALS: BP 145/68; PULSE 67
== END 2020-08-02 09:51 | disposition home or self-care (01) ==
LOC: SDC 05:44
PROVIDERS: ATTEND Family Medicine
DX: C18.0 Malignant neoplasm of cecum (principal); K29.70 Gastritis, unspecified, without bleeding; D50.9 Iron deficiency anemia, unspecified; I10 Essential (primary) hypertension
CPT/HCPCS: 88305; 99100; J2704

== ENCOUNTER 2020-08-24 06:58 | Inpatient (IN) | payer MEDICARE, OTHER ==
--- NOTE | 2020-08-18 15:35 | HP ---
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 She had been scoped recently by Dr. De La Torre or Dr. Schultz and found to have a large polyp in the cecum. She had initially presented with some anemia and fatigue. Incidentally, the patient also has cholelithiasis and is somewhat symptomatic. PAST MEDICAL HISTORY: Hypertension. Deep vein thrombosis. Raynaud's syndrome. PAST SURGICAL HISTORY: Back surgery x4. Partial hysterectomy, unsure if she has ovaries. Bladder lift. ALLERGIES: HYDROMORPHONE. TAPE. MEDICATIONS: Amlodipine. Vitamin B12. Eliquis for deep vein thrombosis. Clonidine. FAMILY HISTORY: Lung cancer. Liver cancer. SOCIAL HISTORY: None. REVIEW OF SYSTEMS: CONSTITUTIONAL: Denies fever or chills. CHEST: Denies shortness of breath. CVS: Denies chest pain. ABDOMEN: Denies abdominal pain, nausea, vomiting, diarrhea, constipation or rectal bleeding. PHYSICAL EXAMINATION: GENERAL: No acute distress. CHEST: Nonlabored. No shortness of breath. CVS: Regular rate and rhythm. ABDOMEN: Soft, nontender. EXTREMITIES: No edema. NEUROLOGIC: Alert. PSYCHIATRIC: Appropriate. IMPRESSION: Cecal adenocarcinoma and symptomatic cholelithiasis. PLAN: Laparoscopic right hemicolectomy with possible cholecystectomy with Dr. Sarmad David. As dictated by Anais Bryant NP.
[2020-08-22 02:04] LABS: AB ID Interp Anti-E
[2020-08-24] MEDS ORDERED: Lactated Ringers 1,000 ML IV ONE ×2 (07:08→15:57)
[2020-08-24] MEDS ORDERED: Sensorcaine 0.25% 10 ML ONE (07:08)
[2020-08-24] MEDS ORDERED: ENTEREG 12 MG PO ONE (10:36)
[2020-08-24] MEDS ORDERED: MEFOXIN 2 GM PREMIX** 2 GM/50 ML ML IV SCH (11:00)
[2020-08-24] MEDS: Lactated Ringers 1,000 ML IV SCH (11:01)
[2020-08-24] MEDS ORDERED: Zofran 4 MG/2 ML VIAL IV PRN (11:17)
[2020-08-24] MEDS ORDERED: MORPHINE SULFATE 4 MG INJ IV PRN (11:24)
[2020-08-24] MEDS ORDERED: BENADRYL 50 MG/ML IV PRN (11:24)
[2020-08-24] MEDS ORDERED: Zofran 4 MG/2 ML VIAL IV ONE (15:57)
[2020-08-24] MEDS ORDERED: MEFOXIN 2 GM PREMIX** 2 GM/50 ML ML IV ONE (15:57)
[2020-08-24] MEDS ORDERED: APRESOLINE 20 MG/ML INJ IV ONE (15:57)
[2020-08-24] MEDS ORDERED: Zemuron 100 MG/10 ML IJ ONE ×2 (15:57)
[2020-08-24] MEDS ORDERED: BRIDION 200MG/2ML IV ONE (15:57)
[2020-08-24] MEDS ORDERED: Xylocaine-Mpf 2% 5 Ml Vial IJ ONE (15:57)
[2020-08-24] MEDS ORDERED: TORAdol 30 mg Injection IJ ONE (15:57)
[2020-08-24] MEDS ORDERED: DIPRIVAN 200 MG/20 ML IV ONE (15:57)
[2020-08-24] MEDS ORDERED: SUBLIMAZE 100 MCG/2 ML IV ONE (15:57)
[2020-08-24] MEDS ORDERED: TRANDATE 20 MG/4 ML SYRINGE IV ONE (15:57)
[2020-08-24] MEDS ORDERED: Decadron 4 MG INJ IV ONE (15:57)
[2020-08-24] MEDS ORDERED: Zofran 4 MG/2 ML VIAL ONE (17:52)
[2020-08-24] MEDS ORDERED: MORPHINE SULFATE 10 MG/ML ONE (17:55)
[2020-08-24] MEDS ORDERED: SUBLIMAZE 100 MCG/2 ML ONE (17:55)
[2020-08-24] MEDS: MORPHINE SULFATE 2 MG INJ IV PRN (19:58)
[2020-08-24] MEDS: MEFOXIN 2 GM PREMIX** 2 GM/50 ML ML IV SCH (20:02)
[2020-08-24 20:16] LABS: Appearance CLEAR (CLEAR); Bilirubin NEGATIVE (NEGATIVE); Blood NEGATIVE Ery/ul (0-5); Glucose NEGATIVE (NEGATIVE); Ketones TRACE (NEGATIVE); Leukocyte Esterase NEGATIVE (NEGATIVE); Nitrite NEGATIVE (NEGATIVE); Protein,Urine Dip NEGATIVE (Negative); RBC 0-2 /HPF (0-2); Specific Gravity 1.005 (1.005-1.025); Urobilinogen NEGATIVE mg/dL (0-1)
[2020-08-24] MEDS: D5W/0.45NS W/ 20mEq KCl 1000 ML 1,000 ML IV SCH (20:44)
[2020-08-24] MEDS: Catapres 0.1 MG PO SCH (22:36)
[2020-08-24] MEDS: ENTEREG 12 MG PO SCH (22:36)
[2020-08-25] MEDS: MEFOXIN 2 GM PREMIX** 2 GM/50 ML ML IV SCH ×5 (00:58→23:03)
[2020-08-25] MEDS: ENOXAPARIN SODIUM SQ SCH ×2 (05:38→09:13)
[2020-08-25 06:08] LABS: Hemoglobin 11.6 gm/dl (12.0-16.0); Mean Corpuscular Hemoglobin 29.3 pg (26-32); Mean Corpuscular Hgb Concent. 30.5 g/dl (32-36); Platelet Count 220 K/mm3 (150-450); Red Blood Count 3.96 M/mm3 (4.1-5.4); Red Cell Distribution Width 17.5 % (11.5-14.0); White Blood Count 7.9 K/mm3 (4.0-10.5)
[2020-08-25 06:27] LABS: ANION GAP 11.6 MEQ/L (5-15); BLOOD UREA NITROGEN 9 mg/dL (7-17); CHLORIDE 101 mmol/L (98-107); Calcium 8.7 mg/dL (8.4-10.2); Carbon Dioxide 23 mmol/L (22-30); Creatinine 1 0.77 mg/dL (0.52-1.04); EST GLOMERULAR FILTRATION RATE > 60.0 ML/MIN; Glucose 169 mg/dL (74-106); Potassium 4.4 mmol/L (3.5-5.1); SODIUM 132 mmol/L (137-145)
[2020-08-25] MEDS: NORCO 5/325 MG PO PRN ×3 (07:33→21:45)
[2020-08-25] MEDS: D5W/0.45NS W/ 20mEq KCl 1000 ML 1,000 ML IV SCH ×3 (07:34→17:26)
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
[2020-08-25] MEDS: Lactated Ringers 1,000 ML IV SCH (08:55)
[2020-08-25] MEDS: ENTEREG 12 MG PO SCH ×2 (09:16→21:01)
[2020-08-25] MEDS: NORVASC 5 MG PO SCH (09:16)
[2020-08-25] MEDS: Catapres 0.1 MG PO SCH ×2 (09:16→21:01)
[2020-08-25] MEDS ORDERED: TYLENOL 325 MG PO PRN (09:43)
[2020-08-25] MEDS ORDERED: NON-FORMULARY ITEM (Apixaban [Eliquis] 5 MG) PO SCH (10:00)
--- NOTE | 2020-08-25 11:25 | OP ---
SURGERY DATE: 08/24/2020 SURGERY TIME: 5 PREOPERATIVE DIAGNOSIS: 1. RIGHT COLON CANCER. 2. SYMPTOMATIC CHOLELITHIASIS. POSTOPERATIVE DIAGNOSIS: 1. RIGHT COLON CANCER. 2. SYMPTOMATIC CHOLELITHIASIS. PROCEDURE: 1. Laparoscopic right hemicolectomy. 2. Laparoscopic cholecystectomy. SURGEON: Sarmad David M.D. ANESTHESIA: General endotracheal tube. COMPLICATIONS: None. CONDITION: Stable. BLOOD LOSS: 100 cc. DRAINS: None. INDICATION: Patient has a new diagnosis of right colon cancer in the cecum. She is elderly. Procedure has been discussed. She preferred to have laparoscopic rather than open. She also had symptomatic cholelithiasis. OPERATIVE PROCEDURE: She was taken to the OR. General anesthetic. Routine prep and drape. Arms tucked. Time-out performed. A routine prep and drape. General anesthetic. Time-out performed. Three 5's were brought down the left side. The right colon was mobilized. The right external iliac identified. The right ureter identified. The right gutter had been opened and then had been mobilized medial. The clear window in the right upper quadrant was visible. It was entered. It was held up. About 4" of mesocolon was taken to the right towards the middle colic vessels. The omentum was transected off the greater curvature, about an inch off the greater curvature. Preparation for transection 4" down on the small bowel and just to the right mid colic vessels. This was then performed with endoscopic JOSE blue cartridges. The colon was totally loose. The ileocolic area was marked with a hook cautery. It was held up, kept away from the ureter, and it was transected with the ligature. This was up to the free window. The duodenal sweep had been well identified and protected posteriorly. There was nothing residual up in the upper quadrant at this time. The specimen was clear. It was placed up above the liver. The gallbladder was elevated upwards. Infundibulum dissected. Cystic duct defined. Cystic artery defined. Both structures triply Ligaclipped and transected. Clips totally cross wall approximated. Gallbladder rolled out of gallbladder fossa. Gallbladder delivered off the top edge of the liver. Field was dry. Preparation for anastomosis. There was already satisfactory mobilization. The end of the ileum and the end of the colon were picked up singly with a single Allis. Was brought to the extraction site in right upper quadrant. 4 cm transverse incision was marked. It was anesthetized with 0.25% Marcaine. It was entered. The two ends pulled out. They were immediately remarked with 2 Allis on the non-anastomotic side. The single endoscopic was on the intended anastomotic area. Two small rents, one in the small bowel and one in the colon here. The JOSE was applied. It was fired. It was inspected. Hemostasis satisfactory. Length was excellent, viability excellent, laid nicely. The ends were picked up, elevated, a contour stapler was placed and fired. A good sealing off of the end was present. Mesentery defect was able to be approximately for 4". This basically closed this mesenteric defect. This was dropped back in the abdomen. The specimen was delivered. The anterior abdominal wall closed in 2 layers, a 0 PDS posterior layer and a 0 PDS anterior layer. Subcutaneous tissue irrigated. Skin closed with molly. Hole closure device was used on the 12 port, was in the middle of the three left lateral ports, had to be changed up from a 5 to 12. This was visibly closed with 2 sutures of 0 Vicryl. Field was totally dry. Just a few drops of residual blood were suctioned. The anastomosis looked excellent and it laid nicely. There were no signs of any issues at all. CO2 was evacuated. Skin finished being closed with molly. Sterile dressing applied. Findings discussed with the family in the waiting room. Patient tolerated the procedure well.
[2020-08-25] MEDS: MORPHINE SULFATE 2 MG INJ IV PRN (13:25)
[2020-08-26] MEDS: D5W/0.45NS W/ 20mEq KCl 1000 ML 1,000 ML IV SCH (03:47)
[2020-08-26] MEDS: NORCO 5/325 MG PO PRN ×4 (03:50→22:59)
[2020-08-26] MEDS: Lactated Ringers 1,000 ML IV SCH (03:56)
[2020-08-26] MEDS: MEFOXIN 2 GM PREMIX** 2 GM/50 ML ML IV SCH (05:06)
[2020-08-26] MEDS: ELIQUIS 2.5 MG TABLET PO SCH ×2 (10:04→20:35)
[2020-08-26] MEDS: Catapres 0.1 MG PO SCH ×2 (10:04→20:35)
[2020-08-26] MEDS: NORVASC 5 MG PO SCH (10:05)
[2020-08-26] MEDS: ENTEREG 12 MG PO SCH ×2 (10:05→20:35)
[2020-08-27 06:26] LABS: Absolute Neutrophil Ct (ANC) 4.06 (1.4-6.9); BASOPHIL % 0.3 % (0.0-0.4); Basophil (Absolute #) 0.02 (0-0.4); Eosinophil % 3.2 % (0.00-5.0); Hematocrit 40.4 % (35-47); Hemoglobin 12.2 gm/dl (12.0-16.0); Lymphocyte (Absolute #) 1.07 (1.0-4.6); Lymphocytes % 17.1 % (24.0-44.0); Mean Cell Volume 97.3 fl (78-100); Mean Corpuscular Hemoglobin 29.4 pg (26-32); Mean Corpuscular Hgb Concent. 30.2 g/dl (32-36); Mean Platelet Volume 10.1 fl (7.5-11.0); Monocytes % 14.4 % (0.0-12.0); Platelet Count 223 K/mm3 (150-450); Red Blood Count 4.15 M/mm3 (4.1-5.4); Red Cell Distribution Width 17.2 % (11.5-14.0); White Blood Count 6.3 K/mm3 (4.0-10.5)
[2020-08-27 06:52] LABS: ALBUMIN 3.6 g/dL (3.5-5.0); ALKALINE PHOSPHATASE 66 U/L (38-126); ANION GAP 9.2 MEQ/L (5-15); BLOOD UREA NITROGEN 7 mg/dL (7-17); CHLORIDE 101 mmol/L (98-107); Calcium 9.2 mg/dL (8.4-10.2); Carbon Dioxide 27 mmol/L (22-30); Creatinine 1 0.76 mg/dL (0.52-1.04); EST GLOMERULAR FILTRATION RATE > 60.0 ML/MIN; Glucose 94 mg/dL (74-106); Potassium 3.9 mmol/L (3.5-5.1); SGOT/AST 37 U/L (14-36); SGPT/ALT 23 U/L (0-35); SODIUM 134 mmol/L (137-145); Total Protein 6.6 g/dL (6.3-8.2)
[2020-08-27] MEDS: NORCO 5/325 MG PO PRN ×3 (07:35→22:22)
[2020-08-27] MEDS: ELIQUIS 2.5 MG TABLET PO SCH ×2 (09:38→21:10)
[2020-08-27] MEDS: Catapres 0.1 MG PO SCH ×2 (09:38→21:10)
[2020-08-27] MEDS: ENTEREG 12 MG PO SCH ×2 (09:38→21:10)
[2020-08-27] MEDS: NORVASC 5 MG PO SCH (09:38)
--- NOTE | 2020-08-28 08:38 | PCM.NOTE ---
Date and Time: 08/28/20832 Subjective Assessment: Pt is tolerating full liquids. Passed gas over the weekend. Up out of bed walking in the [place] with assistance. - Review of Systems Constitutional: No Fever Abdominal/Gastrointestinal: Abdominal Pain Objective Exam General Appearance: no apparent distress, alert Neurologic Exam: oriented x 3, cooperative Skin Exam: normal color, warm, dry, No rash Wound Assessment: Skin/Wound Assessment Wound/Incision Assessment Start: 08/24/20 20:00 Text: Status: Active Freq: Q4H Protocol: Document 08/28/20 04:00 MERT (Rec: 08/28/20 04:07 MERT [id number]) Wound/Incision Assessment Abdomen Wound Assessment Shift Assessment Wound Type Incision Wound Stage Non Pressure Wound Drainage Amount None Drainage Odor None/Absent General Appearance Well Approximated,[place] Intact,Open to air Surrounding Tissue [place] Wound Photo Photo Taken No Eye Exam: eyes nml inspection Ears, Nose, Throat Exam: moist mucous membranes Neck Exam: normal inspection Respiratory Exam: lungs clear, No crackles/rales, No rhonchi, No wheezing Cardiovascular Exam: regular rate/rhythm, normal heart sounds, No murmur Gastrointestinal/Abdomen Exam: soft, tenderness (epigastrum), other (post surgical wounds stapled; well approximated, clean/dry/intact. some surrounding bruises), No normal bowel sounds (hypoactive but present), No distention, No mass, No guarding, No rebound Extremity Exam: normal inspection, No pedal edema, No swelling Back Exam: normal inspection, No rash OBJECTIVE DATA Vital Signs: Vital Signs - 24 hr Temp Pulse Resp BP Pulse Ox 08/28/20 07:15 98.0 F 64 16 138/63 97 08/28/20 04:00 97.7 F 59 L 18 122/67 97 08/28/20 00:00 17 08/27/20 23:49 98.9 F 80 17 94/51 97 08/27/20 19:33 98.1 F 76 16 136/69 94 L 08/27/20 16:00 98.0 F 71 18 121/64 97 08/27/20 12:00 16 08/27/20 11:41 98.1 F 77 16 100/61 97 Pain Assessment - Last Documented Pain Intensity 0 Pain Scale Used 0-10 Pain Scale Intake and Output: Intake & Output 06/25/08/26/20 08/27/20 08/28/20 11:59 11:59 11:59 11:59 Intake Total 771 2280 230 480 Output Total 950 2000 1500 300 Balance -179 280 -1270 180 Weight 69 kg Assessment/Plan (1) S/P partial colectomy Current Visit: Yes Status: Acute Assessment & Plan: POD #4 - doing great. Home when cleared by surgery, thank you. Code(s): Z90.49 - ACQUIRED ABSENCE OF OTHER SPECIFIED PARTS OF DIGESTIVE TRACT (2) Heterozygous factor V Leiden mutation Current Visit: Yes Status: Chronic Assessment & Plan: On Eliquis. Code(s): D68.51 - ACTIVATED PROTEIN C RESISTANCE (3) Myelodysplastic syndrome Current Visit: No Status: Chronic Code(s): D46.9 - MYELODYSPLASTIC SYNDROME, UNSPECIFIED (4) Anemia Current Visit: Yes Status: Acute Qualifiers: Anemia type: iron deficiency Iron deficiency anemia type: chronic blood loss Qualified Code(s): D50.0 - Iron deficiency anemia secondary to blood loss (chronic) Assessment & Plan: Currently Hgb is wnl - would plan to not send home on Fe and keep observing. Code(s): D64.9 - ANEMIA, UNSPECIFIED
[2020-08-28] MEDS: ENTEREG 12 MG PO SCH ×2 (09:19→22:14)
[2020-08-28] MEDS: ELIQUIS 2.5 MG TABLET PO SCH ×2 (09:19→22:13)
[2020-08-28] MEDS: NORVASC 5 MG PO SCH (09:19)
[2020-08-28] MEDS: Catapres 0.1 MG PO SCH ×2 (09:19→22:13)
[2020-08-28] MEDS: NORCO 5/325 MG PO PRN (19:37)
--- NOTE | 2020-08-29 09:35 | PCM.DS ---
Discharge Summary Date of Admission: 08/24/20 10:33 Admitting Physician: ERIK ARMANDO Consults: Consults on Case 08/24/20 11:22 Notify Physician ROUTINE Primary Care Provider: DANITZA GIPSON Allergies Allergies hydromorphone [From Dilaudid] Allergy (Intermediate, Verified 08/24/20 10:56) Itching tape Adverse Reaction (Mild, Uncoded 08/02/20 06:13) Rash Hospital Summary - Hospital Course Hospital Course: Pt is a 79 yo female pt of mine with myelodysplastic syndrome, Factor V Leiden heterozygote, and Reynaud's syndrome who was admitted for partial bowel resection with DR. Nina Armando after tumor was found on colonoscopy recently. She has done well postoperatively; she is not anemic, WBC count normalized, has been passing gas and a very small amount of stool and she is now tolerating a regular diet. No complaints of pain. Is getting around well; will discharge to home as her daughter will be staying with her for several days. - Vitals & Intake/Output Vital Signs: Vital Signs Temperature 98.6 F 08/29/20 08:00 Pulse Rate 71 08/29/20 08:00 Respiratory Rate 18 08/29/20 08:00 Blood Pressure 137/76 08/29/20 08:00 O2 Sat by Pulse Oximetry 96 08/29/20 08:00 Intake & Output: Intake & Output 08/26/20 08/27/20 08/28/20 08/29/20 11:59 11:59 11:59 11:59 Intake Total 2280 230 480 360 Output Total 2000 4727 828 2840 Balance 280 -1270 180 -990 - Lab Result Diagrams: 08/27/20 06:18 08/27/20 06:18 Lab Results-Last 24 Hrs: Lab Results-Last 24 Hours 08/21/20 Range/Units 15:10 Reporting Documentation Not Reportable Micro Results-Entire Visit: Microbiology 08/24/20 15:00 Urine Culture - Final Urine, Catheterized NO GROWTH - Procedures and Test Procedures and Tests throughout Hospitalization: Therapy Orders & Screens 08/24/20 21:32 Oxygen NASAL CANNULA 2 lpm Comment: O2 SAT 88% ON RM AIR Diagnosis: Right hemicolectomy 08/25/20 16:46 Incentive Spirometry UD Comment: Diagnosis: Right hemicolectomy Discharge Exam General Appearance: no apparent distress, alert Neurologic Exam: oriented x 3, cooperative Eye Exam: eyes nml inspection Ears, Nose, Throat Exam: moist mucous membranes Neck Exam: normal inspection Respiratory Exam: normal breath sounds, lungs clear, No crackles/rales, No rhonchi, No wheezing Cardiovascular Exam: regular rate/rhythm, normal heart sounds, No murmur Gastrointestinal/Abdomen Exam: soft, normal bowel sounds, No tenderness, No distention Extremity Exam: normal inspection, No pedal edema, No swelling Skin Exam: normal color, warm, dry, No rash Wound Assessment: Skin/Wound Assessment Wound/Incision Assessment Start: 08/24/20 20:00 Text: Status: Active Freq: Q4H Protocol: Document 08/29/20 08:00 [facility] (Rec: 08/29/20 09:13 [id number] Wound/Incision Assessment Abdomen Wound Assessment Shift Assessment Wound Type Incision Wound Stage Non Pressure Wound Drainage Amount None Drainage Odor None/Absent General Appearance Well Approximated,[place] Intact,Open to air Surrounding Tissue [place] Wound Photo Photo Taken No Final Diagnosis/Problem List - Final Discharge Diagnosis/Problem (1) S/P partial colectomy Current Visit: Yes Status: Acute Assessment & Plan: Doing great. POD #5. I anticipate that surgery will want to discharge her to home today, but await their order. Code(s): Z90.49 - ACQUIRED ABSENCE OF OTHER SPECIFIED PARTS OF DIGESTIVE TRACT (2) Heterozygous factor V Leiden mutation Current Visit: Yes Status: Chronic Code(s): D68.51 - ACTIVATED PROTEIN C RESISTANCE (3) Myelodysplastic syndrome Current Visit: No Status: Chronic Code(s): D46.9 - MYELODYSPLASTIC SYNDROME, UNSPECIFIED (4) Anemia Current Visit: Yes Status: Acute Code(s): D64.9 - ANEMIA, UNSPECIFIED - Discharge Disposition: Home, Self-Care Condition: Stable Prescriptions: New Hydrocodone/Acetaminophen [Hydrocodone-Acetamin 5-325 mg] 1 tab PO Q4HPRN PRN #20 tablet MDD 5 PRN Reason: Pain No Action Clonidine HCl 0.1 mg [Catapres 0.1 MG] 0.1 mg PO BID Amlodipine Besylate 5 mg [Norvasc 5 mg] 5 mg PO DAILY Acetaminophen [Tylenol] 325 mg PO Q6H PRN PRN PRN Reason: Mild Pain Apixaban [Eliquis] 5 mg PO BID #60 tablet Enoxaparin Sodium [Lovenox] 40 mg SQ DAILY Follow up with: ERIK ARMANDO [ACTIVE STAFF] - DANITZA IGPSON [Primary Care Provider] - Forms: Patient Portal Information
[2020-08-29] MEDS: ELIQUIS 2.5 MG TABLET PO SCH (10:09)
[2020-08-29] MEDS: Catapres 0.1 MG PO SCH (10:09)
[2020-08-29] MEDS: NORVASC 5 MG PO SCH (10:10)
[2020-08-29] MEDS: ENTEREG 12 MG PO SCH (10:10)
[2020-08-29] MEDS: NORCO 5/325 MG PO PRN (10:22)
[2020-08-29 17:42] VITALS: BP 118/58; PULSE 72; O2SAT 98
== END 2020-08-29 20:10 | disposition home or self-care (01) | DRG 330 ==
LOC: EDSTATUS 06:58 → MED SURG 10:33
PROVIDERS: ADMIT Surgery; ATTEND Surgery
PROC: 0DTF4ZZ Resection of Right Large Intestine, Percutaneous Endoscopic Approach (ICD-10-PCS; principal; 2020-08-24)
PROC: 0FT44ZZ Resection of Gallbladder, Percutaneous Endoscopic Approach (ICD-10-PCS; 2020-08-24)
DX: C18.0 Malignant neoplasm of cecum (principal); D68.51 Activated protein C resistance; K80.20 Calculus of gallbladder without cholecystitis without obstruction; D46.9 Myelodysplastic syndrome, unspecified; I73.00 Raynaud's syndrome without gangrene; Z79.899 Other long term (current) drug therapy; I10 Essential (primary) hypertension; Z86.718 Personal history of other venous thrombosis and embolism; Z79.01 Long term (current) use of anticoagulants; Z20.828 Contact with and (suspected) exposure to other viral communicable diseases
CPT/HCPCS: 36415; 44204; 47562; 80048; 80053; 81001; 85025; 85027; 86850; 86870; 86900; 86901; 86922; 87086; 93005; 94760; U0003; 88304; 88309; 88341; 88342; 99100; J0360; J0694; J1100; J1650; J1885; J2270; J2405; J2704; J3010; A9270-GY

== ENCOUNTER 2021-08-23 07:20 | Day surgery (SDC) | payer MEDICARE, OTHER ==
--- NOTE | 2021-08-16 08:02 | HP ---
AMENDED REPORT: DATE OF SURGERY: 08/23/2021 HISTORY OF PRESENT ILLNESS: The patient is an 80-year-old female who presents for follow up of colon cancer. The patient had a right hemicolectomy in August 2020 for colon cancer. The patient does have any symptoms at this time. PAST MEDICAL HISTORY: Colon cancer. Raynaud's. Blood clot. Gout. Hypertension. PAST SURGICAL HISTORY: Right hemicolectomy. Partial hysterectomy. ALLERGIES: DILAUDID. TAPE. MEDICATIONS: Clonidine, Eliquis, amlodipine, iron, allopurinol, calcium with vitamin D3. FAMILY HISTORY: None. SOCIAL HISTORY: None. REVIEW OF SYSTEMS: CONSTITUTIONAL: Denies fever or chills. CHEST: Denies shortness of breath. CVS: Denies chest pain. ABDOMEN: Denies abdominal pain. PHYSICAL EXAMINATION: GENERAL: No acute distress. CHEST: Nonlabored. No shortness of breath. CVS: Regular rate and rhythm. ABDOMEN: Soft. IMPRESSION: History of colon cancer. PLAN: Colonoscopy with Dr. Sarmad David. As dictated by Anais Bryant NP.
[2021-08-23] MEDS ORDERED: Lactated Ringers 1,000 ML IV ONE (07:29)
[2021-08-23] MEDS ORDERED: Lactated Ringers 1,000 ML IV SCH (07:30)
[2021-08-23] MEDS ORDERED: Xylocaine-Mpf 2% 5 Ml Vial ONE (09:58)
[2021-08-23] MEDS ORDERED: DIPRIVAN 200 MG/20 ML IV ONE (09:58)
[2021-08-23] MEDS ORDERED: ATROPINE SULFATE 1MG ONE (10:09)
[2021-08-23 10:47] VITALS: BP 130/76; PULSE 67; O2SAT 95
--- NOTE | 2021-08-23 13:13 | OP ---
SURGERY DATE: 08/23/2021 SURGERY TIME: 999 PREOPERATIVE DIAGNOSIS: 1. RIGHT HEMICOLECTOMY 1 YEAR AGO. POSTOPERATIVE DIAGNOSIS: 1. NORMAL ANASTOMOSIS. 2. MODERATE SIGMOID DIVERTICULOSIS. 3. MODERATE INTERNAL HEMORRHOIDS. PROCEDURE: 1. Colonoscopy complete. SURGEON: Sarmad David M.D. ANESTHESIA: MAC. COMPLICATIONS: None. CONDITION: Stable. INDICATION: Patient had colon resection for cancer 1 year ago. She presents for 1 year follow-up. OPERATIVE PROCEDURE: She was taken to endoscopy. Left lateral decubitus position. Anal digital examination satisfactory. Scope introduced. Prep score was excellent. Scope advanced up to the anastomosis. Anastomosis mid abdomen. Ileocolic [id number] was excellent. No suggestion of any issues. Circumferential withdrawal. There was moderate sigmoid diverticulosis. There were moderate internal hemorrhoids. Normal exam. Patient tolerated the procedure satisfactory. PLAN: Follow-up in 2 years.
== END 2021-08-23 10:47 | disposition home or self-care (01) ==
LOC: SDC 07:20
PROVIDERS: ATTEND Surgery
DX: Z08 Encounter for follow-up examination after completed treatment for malignant neoplasm (principal); Z85.038 Personal history of other malignant neoplasm of large intestine; Z90.49 Acquired absence of other specified parts of digestive tract; K57.30 Diverticulosis of large intestine without perforation or abscess without bleeding; K64.8 Other hemorrhoids; Z79.01 Long term (current) use of anticoagulants
CPT/HCPCS: 99100; J0461; J2704